=== PATIENT | male | born 1980 | race Caucasian/White ===

== ENCOUNTER → 2017-09-05 | Outpatient (CLI) | payer OTHER ==
--- NOTE | 2017-09-05 10:31 | DIAGNOSTIC IMAGING REPORT ---
S.I. JOINTS 3 OR MORE VIEWS CLINICAL HISTORY: CHRONIC LEFT SI JOINT PAIN COMPARISON STUDY: None. FINDINGS: No fractures identified within the sacrum. The bilateral sacroiliac joints are within normal limits. No significant degenerative changes or erosions identified. Surgical clip within the right lower quadrant. IMPRESSION: No significant abnormality within the bilateral sacroiliac joints. Electronically signed by: Alfonso Michaels M.D. 09/05/2017 10:30 AM Dictated Date/Time: 09/05/2017 10:29 AM
== END | disposition home or self-care (01) ==
LOC: C.RDSM 10:33
PROVIDERS: ATTEND Family Medicine
DX: M53.3 Sacrococcygeal disorders, not elsewhere classified (principal)

== ENCOUNTER 2024-04-08 15:05 | Observation (INO) ==
[2024-04-08 16:02] LABS: Basophils # (auto) 0.03 K/uL (0.00-0.20); Basophils % (auto) 0.3 %; Eosinophils # (auto) 0.01 K/uL (0.00-0.50); Eosinophils % (auto) 0.1 %; Hematocrit (blood only) 48.4 % (42.0-52.0); Hemoglobin 16.9 g/dl (14.0-18.0); Immature Granulocytes # (auto) 0.03 K/uL (0.01-0.20); Immature Granulocytes % (auto) 0.3 %; Lymphocytes % (auto) 18.1 %; Mean Corpuscular Hemoglobin 28.4 pg (25.0-34.0); Mean Corpuscular Hgb Conc 34.9 g/dL (32.0-36.0); Mean Corpuscular Volume 81.2 fL (80.0-100.0); Mean Platelet Volume 11.7 fL (9.4-12.4); Monocytes # (auto) 0.53 K/uL (0.11-0.59); Monocytes % (auto) 5.6 %; Neutrophils # (auto) 7.09 K/uL (1.40-6.50); Neutrophils % (auto) 75.6 %; Platelet Count 183 K/uL (130-400); RDW Coefficient of Variation 12.7 % (11.5-14.5); RDW Standard Deviation 37.2 fL (36.4-46.3); Red Blood Count 5.96 M/uL (4.70-6.10); White Blood Count 9.39 K/ul (4.8-10.8)
[2024-04-08 16:12] LABS: Alanine Aminotransferase 31 U/L (7-52); Albumin Globulin Ratio 1.6 (0.9-2); Alkaline Phosphatase 109 U/L (34-104); Anion Gap 12 (3-11); Aspartate Aminotransferase 23 U/L (13-39); Bilirubin,Total 1.1 mg/dl (0.2-1.0); Blood Urea Nitrogen 14 mg/dl (6-23); Calcium 9.9 mg/dl (8.6-10.3); Carbon Dioxide 26 mmol/L (21-32); Chloride 100 mmol/L (98-107); Est GFR (African American) 106.4 ml/min; Est GFR (Non-African American) 91.8 ml/min; Globulin 3.1 gm/dl (2.5-4.0); Glucose 112 mg/dl (70-99(Fasting)); Potassium 3.7 mmol/L (3.5-5.1); Sodium 138 mmol/L (136-145); Total Protein 8.1 gm/dl (6.0-8.3)
[2024-04-08 16:22] LABS: Partial Thromboplastin Time 28 Seconds (21-31); Prothrombin Time 10.9 Seconds (9.0-12.0)
--- NOTE | 2024-04-08 16:28 | XRay Report ---
XR chest 1V not portable CLINICAL HISTORY: Chest pain, nonspecific TECHNIQUE: Single frontal radiograph of the chest was obtained. Comparison: Comparison is made to chest radiograph 04/05/2024 FINDINGS: No lines and tubes are seen. The cardiomediastinal silhouette is normal. The lungs are clear. No evid ence of pleural effusion or pneumothorax. IMPRESSION: No acute chest disease. ACT 112: Negative or not required by law. Electronically signed by: Arthur Pedraza M.D. 04/08/2024 4:27 PM
--- NOTE | 2024-04-08 16:46 | Electrocardiogram Report ---
Test Reason : Blood Pressure : / mmHG Vent. Rate : 099 BPM Atrial Rate : 099 BPM P-R Int : 136 ms QRS Dur : 106 ms QT Int : 356 ms P-R-T Axes : 026 -74 043 degrees QTc Int : 456 ms Normal sinus rhythm Left axis deviation Minimal voltage criteria for LVH, may be normal variant Abnormal ECG When compared with ECG of 05-APR-2024 12:01, No significant change was found Confirmed by Hai Johnson ([id number]) on 04/08/2024 4:45:24 PM Referred By: Confirmed By:Hai Johnson
--- NOTE | 2024-04-08 18:15 | History & Physical Report ---
Date of Service April 08, 2024 Assessment & Plan (1) Chest pain: Plan: Substernal chest pain that developed on 04/05 while raking; negative workup in the ED on 04/05 Recurrence of chest pain on 04/08 ECG revealed NSR with no acute changes from 04/05 Troponin WNL at 8.0 on arrival, repeat pending Unclear etiology, but given hours of CP without positive troponin, lower suspicion for cardiac etiology Treadmill stress echocardiogram ordered for the morning of 04/09 Lyme ordered, pending ECG as needed for chest pain Continuous telemetry monitoring A.m. CBC, BMP (2) Hypertension: Plan: If stress echocardiogram and Lyme are negative, most likely etiology may be hypertension Patient was started on valsartanHCTZ on Friday 04/06 by PCP Per home BP readings, he has been around 160/105 Continue olmesartanHCTZ for now and continue to monitor kidney function Will add on metoprolol tartrate 12.5 mg p.o. BID (3) Hypercholesterolemia: Plan: Familial hypercholesteremia Continue atorvastatin Plan Disposition: Obs - Admit to [facility] telemetry Full code Heart healthy diet VTE PPx: Encourage ambulation, and can add on for extended stay History of Present Illness Chief Complaint: Chest Pain Primary Care Provider: Obduliocharity Kael Garcia is a 43-year-old male with PMH of HTN and hypercholesterolemia. He presented for chest pain on 04/08. He initially presented to the ED on Thursday 04/05 after experiencing transverse lower chest pain while raking outside in the yard. He characterizes the pain as a sharp pain that lasted several hours; 4/10. No radiation to the back, but patient was unsure if it later radiated to his shoulders. Patient did experience some relief when laying flat on his back. Associated symptoms included nausea and shortness of breath. He did not take any medications prior to going to the ED that day. Patient saw his PCP on Friday 04/06 and was started on a new blood pressure medication (olmesartanHCTZ). However, when the chest pain occurred on Sunday 04/08, he returned to the ED. Chest pain is nonreproducible on exam. He denies pleuritic chest pain. No PMH of [place], DVT/PE, stroke, diabetes, or PVD. No PMH of GERD, and patient reports that medications given for GERD on 04/05 did not alleviate his symptoms. He does have a history of familial hypercholesterolemia, and was recently diagnosed with HTN. Family history includes [place] (both grandparents) as well as high cholesterol; no sudden cardiac deaths in family members <55yo. Patient denies smoking, tobacco use, or recent alcohol use. Patient's is at the bedside, and reports that he is normally active without complaint. He has been taking his blood pressure at home over the past couple days and it has been running high around 160/105. Patient is hypertensive at 164/126 and mildly tachycardic at 99 bpm at time of admission. ED course: ROS: Patient endorses chest pain, episodes of sweating (which patient believes is unrelated to the chest pain), difficulty taking deep breaths (which patient is attributes to the chest pain), nausea, and diarrhea (which began after patient started olmesartan/HCTZ). Patient denies fever, chills, body aches, rashes, tick bites, dizziness, lightheadedness, headache, cough, pleuritic CP, abdominal pain, N/V, change in urinary habits, or numbness and tingling in arms or legs. Allergies Allergy/AdvReac Type Severity Reaction Status Date / Time No Known Allergies Allergy Verified 04/08/24 18:17 Home Medications Medication Instructions Recorded Confirmed Type atorvastatin 20 mg tablet 20 mg PO QAM 04/05/24 04/08/24 History azelastine 137 mcg (0.1 %) nasal 1 spray intranasal QAM PRN 04/05/24 04/08/24 History spray aerosol Congestion coenzyme Q10 100 mg capsule 100 mg PO DAILY 04/05/24 04/08/24 History (CoQ-10) fluticasone propionate 50 2 spray intranasal QPM PRN 04/05/24 04/08/24 History mcg/actuation nasal Congestion spray,suspension omega 5-yfv-ast-fish oil 1,000 mg 1 cap PO DAILY 04/05/24 04/08/24 History (120 mg-180 mg) capsule (Fish Oil) olmesartan 20 1 tab PO DAILY 04/08/24 04/08/24 History mg-hydrochlorothiazide 12.5 mg tablet Past Med/Surg History Problem List (Updated 04/08/24 @ 19:12 by Alfonso Ramos PA-C) Hypertension Chest pain (Acute) Hypercholesterolemia (Acute) Medical History (Updated 04/08/24 @ 19:12 by Alfonso Ramos PA-C) Hypertriglyceridemia Social History Smoking Status: Never smoker Preferred Language: Tongan Feels Safe at Home: Yes Review of Systems Review of Systems: See HPI above Physical Exam Physical Exam: General: no acute distress; anxious; non-toxic appearing; well-nourished; cooperative; SpO2 94% on RA HEENT: normocephalic, atraumatic; no scleral icterus; PERRLA; moist mucus membrane; vision and hearing grossly intact Neck: supple; no lymphadenopathy; trachea midline Skin: warm, dry without signs of tenting; no cyanosis; no rashes, bruising, lesions, or erythema noted CV: chest wall NTP; chest pain is not reproducible on exam; RRR; S1/S2 normal; no murmurs/rubs/gallops; pulses intact and symmetric at radial, DP, and PT Lungs: no acute respiratory distress; symmetrical chest wall expansion; clear breath sounds across all lung chahal w/o adventitious sounds; no wheezing ABD: Soft, NTP; BS present; no rebound/guarding; no distention MSK: no tics or fasciculations; no edema noted in the LEs b/l, nonerythematous Neuro: A&Ox3; normal mood and affect; fluent speech; no focal deficits; sensation grossly intact in the LEs b/l Results & Data Results & Data Vital Signs (Past 12 Hours) Vital Signs Temp Pulse Resp BP Pulse Ox O2 Del Method 04/08/24 15:21 36.9 C 99 H 19 164/126 H 94 Room Air Laboratory Results Abnormal lab results 04/08/24 Range/Units 15:27 Neut # (Auto) 7.09 H (1.40-6.50) K/uL Anion Gap 12 H (3-11) Glucose 112 H (70-99(Fasting)) mg/dl Total Bilirubin 1.1 H (0.2-1.0) mg/dl Alkaline Phosphatase 109 H (34-104) U/L Diagnostic Findings Chest X-Ray 04/08/24 15:23 XR chest 1V not portable CLINICAL HISTORY: Chest pain, nonspecific TECHNIQUE: Single frontal radiograph of the chest was obtained. Comparison: Comparison is made to chest radiograph 04/05/2024 FINDINGS: No lines and tubes are seen. The cardiomediastinal silhouette is normal. The lungs are clear. No evidence of pleural effusion or pneumothorax. IMPRESSION: No acute chest disease. ACT 112: Negative or not required by law. Electronically signed by: Arthur Pedraza M.D. 04/08/2024 4:27 PM ECG Additional Comments: ECG revealed NSR at 99 bpm; QTc 456 No significant change from 04/05/2024 Code Status & VTE Plan Code Status Full code Supervising Physician Co-Signing Physician Notes Patient seen and examined, chart reviewed, case discussed with Alfonso Ramos PA-C and I agree with the assessment and plan as above except as otherwise noted Labs and images reviewed 43-year-old male who was seen in the ER instantly discharged 3 days ago for substernal chest pain with radiation to the left arm which occurred during yard work. Patient had a constant ache of more than 2 hours by time of hospital assessment at that time, as his troponin was normal and his heart score was low risk for ACS patient was recommended to follow-up with PCP for further intervention and BP control as he was noted to be hypertensive. Patient Ceci presents to the ER 04/08 and is not comfortable with return home as he has had recurrent pain and hypertension. He has not had new or changing symptoms. He is not hypoxic. His BP is 164/126, Had not received any treatment prior to consultation. Patient was started on metoprolol 12.5 mg tartrate twice daily. BP improving on recheck 160/90s. Troponin was normal, no acute ischemic changes on EKG. patient with a high level of concern especially given recurrent pain and does not feel comfortable discharge and pursuing outpatient stress test. Will order stress test for the a.m., and in the meantime treat his blood pressure with adjunct metoprolol. Stress echo ordered for a.m. Lyme is pending. P alyse is initially seen in waiting room due to ER overflow, and subsequently moved to ER room. On exam lungs are clear, heart rate is regular, no murmurs appreciated. Agree with assessment and management above. No evidence of CHF. No rashes. No positional or reproducible chest pain on exam. PG Care Time/CCT Total # of Minutes Spent Total Time Spent with Patient: Total time spent is greater than 50% in coordination of care (as documented) at patient's floor/unit and/or counseling patient: [place] [address] INT INP/OBS CARE MIN Patient Type New History Comprehensive Exam Comprehensive Medical Decision Making Moderate Complexity Diagnoses Chest pain R07.9 Hypertension I10 Hypercholesterolemia E78.00
[2024-04-08] MEDS ORDERED: FLUTICASONE PROPIONATE NA SPR 16 GM BTL PRN (21:48)
[2024-04-08] MEDS ORDERED: ACETAMINOPHEN 325 MG TAB PO PRN (21:48)
[2024-04-08] MEDS: METOPROLOL TARTRATE 25 MG TAB PO SCH (22:07)
--- NOTE | 2024-04-08 22:46 | Emergency Department Note ---
History of Present Illness General Chief Complaint: Chest Pain Stated Complaint: CHEST PAINS, SOB Time Seen by Provider: 04/08/24 17:49 History of Present Illness Provider Complaint: chest pain Onset (ago): day(s) 3 Duration: intermittent Onset: during rest Pain Location: substernal Severity: moderate Maximum Pain Intensity: 4 Current Pain Intensity: 4 Quality: + dull Relieved By: + nothing Exacerbated By: + nothing Context: no recent illness, no recent surgery, no recent immobilization, no recent travel, no trauma/injury, no new medications or no history of DVT/PE Associated symptoms: + dyspnea; no nausea, no vomiting, no diaphoresis, no syncope, no palpitations, no fever, no cough or no leg swelling Home Medications Medication Instructions Recorded Confirmed Type atorvastatin 20 mg tablet 20 mg PO QAM 04/05/24 04/08/24 History azelastine 137 mcg (0.1 %) nasal 1 spray intranasal QAM PRN 04/05/24 04/08/24 History spray aerosol Congestion coenzyme Q10 100 mg capsule 100 mg PO DAILY 04/05/24 04/08/24 History (CoQ-10) fluticasone propionate 50 2 spray intranasal QPM PRN 04/05/24 04/08/24 History mcg/actuation nasal Congestion spray,suspension omega 2-qdd-oar-fish oil 1,000 mg 1 cap PO DAILY 04/05/24 04/08/24 History (120 mg-180 mg) capsule (Fish Oil) olmesartan 20 1 tab PO DAILY 04/08/24 04/08/24 History mg-hydrochlorothiazide 12.5 mg tablet Allergies Allergy/AdvReac Type Severity Reaction Status Date / Time No Known Allergies Allergy Verified 04/08/24 18:17 Past Med/Surg History Problem List (Updated 04/08/24 @ 22:46 by Ravi Barrera MD) Hypertension Chest pain (Acute) Hypercholesterolemia (Acute) Medical History Hypertriglyceridemia Social History Smoking Status: Never smoker Preferred Language: Latvian Feels Safe at Home: Yes Physical Exam Vital Signs Vital Signs - 24 hr 04/08/24 15:21 04/08/24 18:36 Temperature 36.9 C Temperature Source Temporal Artery Scan Pulse Rate 99 H Pulse Rate [Finger] 87 Respiratory Rate 19 Respiratory Effort / Characteristics Non-Labored Spontaneous Respiratory Depth Normal Blood Pressure 164/126 H Blood Pressure [Left Arm] 167/97 H Blood Pressure Mean 138 Blood Pressure Mean [Left Arm] 120 Pulse Oximetry 94 Oxygen Delivery Method Room Air Sepsis Recent Fever Within 48 Hours No Sepsis New/Unexplained Change in Mental Status N/A Sepsis Action Taken by Nursing No Action Required Physical Exam GENERAL: oriented to person, place, and time. appears well-developed and well- nourished. HENT: Exam performed. - Head: Normocephalic and atraumatic. EYES: Conjunctivae and EOM are normal. Right eye exhibits no discharge. Left eye exhibits no discharge. No scleral icterus. NECK: Normal range of motion. Neck supple. No JVD present. CV: Normal rate, regular rhythm, normal heart sounds and intact distal pulses. There is no peripheral edema. Palpable radial pulses bue. PULM/CHEST: Effort normal and breath sounds normal. No respiratory distress. No stridor. no wheezes. no rales. NEURO: Motor and sensation grossly intact. SKIN: Skin is warm and dry. He is not diaphoretic. PSYCH: normal mood and affect. Behavior is normal. Judgment and thought content normal. Course Course 1748: The patient was evaluated in room Triage 3. A complete history and physical exam was performed Patient was seen during a time of extreme volume and extreme acuity. Nursing triage protocols were initiated labs and imaging was conducted by protocol in the triage area. Vital signs stable. Physical exam within normal limits. Labs and imaging within normal limits. External medical records reviewed. Patient was seen in the emergency department 2 days ago for similar episode. Patient had negative troponins negative D-dimer negative CTA of the chest. Patient was evaluated by Dr. Elliott in the emergency department. She tried to have the patient admitted to the hospitalist team and the patient was evaluated by Dr[facility] and discharged home. Given the patient's continued symptoms and his return visit to the emergency department patient be admitted to the [facility] hospitalist team for cardiac workup and cardiology evaluation. Dr. Reyes will be notified. Administered Medications Metoprolol Tartrate (Metoprolol Tartrate 25 Mg Tab) 12.5 mg PO BID FRANCIE Stop: 04/08/24 23:59 Last Admin: 04/08/24 22:07 Dose: 12.5 mg Documented By: [facility] [place] Medical Decision Making Laboratory Data Attestation: I reviewed the patient's lab results. 04/08/24 15:27 04/08/24 15:27 Labs: Lab Results 04/08/24 Range/Units 15:27 WBC 9.39 (4.8-10.8) K/ul RBC 5.96 (4.70-6.10) M/uL Hgb 16.9 (14.0-18.0) g/dl Hct 48.4 (42.0-52.0) % MCV 81.2 (80.0-100.0) fL MCH 28.4 (25.0-34.0) pg MCHC 34.9 (32.0-36.0) g/dL RDW Std Deviation 37.2 (36.4-46.3) fL RDW Coeff of Susan 12.7 (11.5-14.5) % Plt Count 183 (130-400) K/uL MPV 11.7 (9.4-12.4) fL Immature Gran % (Auto) 0.3 % Neut % (Auto) 75.6 % Lymph % (Auto) 18.1 % [place] % (Auto) 5.6 % Eos % (Auto) 0.1 % Baso % (Auto) 0.3 % Neut # (Auto) 7.09 H (1.40-6.50) K/uL Lymph # (Auto) 1.70 (1.20-3.40) K/uL [place] # (Auto) 0.53 (0.11-0.59) K/uL Eos # (Auto) 0.01 (0.00-0.50) K/uL Baso # (Auto) 0.03 (0.00-0.20) K/uL Immature Gran # (Auto) 0.03 (0.01-0.20) K/uL PT 10.9 (9.0-12.0) Seconds INR 1.0 (0.9-1.1) APTT 28 (21-31) Seconds PTT Ratio 1.0 Sodium 138 (136-145) mmol/L Potassium 3.7 (3.5-5.1) mmol/L Chloride 100 (98-107) mmol/L Carbon Dioxide 26 (21-32) mmol/L Anion Gap 12 H (3-11) BUN 14 (6-23) mg/dl Creatinine 1.00 (0.6-1.4) mg/dl Est Cr Clr Drug Dosing Not Reportable Est GFR ( Amer) 106.4 ml/min Est GFR (Non-Af Amer) 91.8 ml/min BUN/Creatinine Ratio 14.0 (10-20) Glucose 112 H (70-99(Fasting)) mg/dl Calcium 9.9 (8.6-10.3) mg/dl Total Bilirubin 1.1 H (0.2-1.0) mg/dl AST 23 (13-39) U/L ALT 31 (7-52) U/L Alkaline Phosphatase 109 H (34-104) U/L Troponin I High Sens 8.0 (0-20) pg/ml Total Protein 8.1 (6.0-8.3) gm/dl Albumin 5.0 (3.4-5.0) gm/dl Globulin 3.1 (2.5-4.0) gm/dl Albumin/Globulin Ratio 1.6 (0.9-2) Lyme Disease Screen Negative (Negative) Imaging Data Chest x-ray: Attestation: I personally reviewed and interpreted this imaging study as follows: My impression: Chest x-ray negative. Airway clear. No pneumothorax. No consolidation. No cardiomegaly or cephalization.. No free air under the diaphragm. No fractures of the skeletal structures. Radiologist's impression: Chest X-Ray 04/08/24 15:23 XR chest 1V not portable CLINICAL HISTORY: Chest pain, nonspecific TECHNIQUE: Single frontal radiograph of the chest was obtained. Comparison: Comparison is made to chest radiograph 04/05/2024 FINDINGS: No lines and tubes are seen. The cardiomediastinal silhouette is normal. The lungs are clear. No evidence of pleural effusion or pneumothorax. IMPRESSION: No acute chest disease. ACT 112: Negative or not required by law. Electronically signed by: Arthur Pedraza M.D. 04/08/2024 4:27 PM ECG Data Attestation: I personally reviewed and interpreted this ECG as follows: Indication: chest pain Rate (beats per minute): 99 Rhythm: normal sinus Findings: no ST depression, no ST elevation or no prolonged QT MDM Narrative The patient was evaluated in room Triage 3. A complete history and physical exam was performed Patient was seen during a time of extreme volume and extreme acuity. Nursing triage protocols were initiated labs and imaging was conducted by protocol in the triage area. Vital signs stable. Physical exam within normal limits. Labs and imaging within normal limits. External medical records reviewed. Patient was seen in the emergency department 2 days ago for similar episode. Patient had negative troponins negative D-dimer negative CTA of the chest. Patient was evaluated by Dr. Elliott in the emergency department. She tried to have the patient admitted to the hospitalist team and the patient was [email or web address] and discharged home. Given the patient's continued symptoms and his return visit to the emergency department patient be admitted to the [facility] hospitalist team for cardiac workup and cardiology evaluation. Dr. Reyes will be notified. Impression & Plan Chest pain Discharge Plan Visit Data Chief Complaint: Chest Pain Stated Complaint: CHEST PAINS, SOB ED Provider: Ravi Barrera Discharge Problem: Chest pain Patient Disposition: Admitted As Inpatient Discharge Instructions Interventions: ED Discharge Assessment Last Done: 04/08/24 21:47 Discharge Problem: Chest pain Qualifiers: Chest pain type: unspecified Qualified Code(s): R07.9 - Chest pain, unspecified
[2024-04-09 07:14] LABS: Basophils # (auto) 0.02 K/uL (0.00-0.20); Basophils % (auto) 0.3 %; Eosinophils # (auto) 0.08 K/uL (0.00-0.50); Hematocrit (blood only) 44.3 % (42.0-52.0); Hemoglobin 15.5 g/dl (14.0-18.0); Immature Granulocytes # (auto) 0.03 K/uL (0.01-0.20); Immature Granulocytes % (auto) 0.4 %; Lymphocytes # (auto) 2.68 K/uL (1.20-3.40); Lymphocytes % (auto) 33.6 %; Mean Corpuscular Hemoglobin 28.5 pg (25.0-34.0); Mean Corpuscular Volume 81.6 fL (80.0-100.0); Mean Platelet Volume 12.1 fL (9.4-12.4); Monocytes # (auto) 0.72 K/uL (0.11-0.59); Neutrophils # (auto) 4.45 K/uL (1.40-6.50); Neutrophils % (auto) 55.7 %; Platelet Count 149 K/uL (130-400); RDW Coefficient of Variation 12.6 % (11.5-14.5); RDW Standard Deviation 37.1 fL (36.4-46.3); Red Blood Count 5.43 M/uL (4.70-6.10); White Blood Count 7.98 K/ul (4.8-10.8)
[2024-04-09 07:32] LABS: BUN Creatinine Ratio 16.7 (10-20); Calcium 9.5 mg/dl (8.6-10.3); Creatinine Clr Calc Pharmacy 108.8 ml/min; Est GFR (African American) 96.9 ml/min; Est GFR (Non-African American) 83.6 ml/min; Potassium 3.4 mmol/L (3.5-5.1)
[2024-04-09] MEDS: ATORVASTATIN 20 MG TAB PO SCH (08:26)
[2024-04-09] MEDS: hydroCHLOROthiazide 25 MG TAB PO SCH (08:27)
[2024-04-09] MEDS: LOSARTAN POTASSIUM 50 MG TAB PO SCH (08:27)
[2024-04-09] MEDS: METOPROLOL TARTRATE 25 MG TAB PO SCH (11:36)
--- NOTE | 2024-04-09 13:56 | XCELERA ---
[id number]
--- NOTE | 2024-04-09 14:58 | Discharge Summary ---
Discharge Summary Date of Service April 09, 2024 Notes For Next Care Provider pt did have a negative exercise stress test, pt does not have significant anginal symptoms consider GI workup Admission HPI Per Admitting Provider Jose is a 43-year-old male with PMH of HTN and hypercholesterolemia. He presented for chest pain on 04/08. He initially presented to the ED on Thursday 04/05 after experiencing transverse lower chest pain while raking outside in the yard. He characterizes the pain as a sharp pain that lasted several hours; 4/10. No radiation to the back, but patient was unsure if it later radiated to his shoulders. Patient did experience some relief when laying flat on his back. Associated symptoms included nausea and shortness of breath. He did not take any medications prior to going to the ED that day. Patient saw his PCP on Friday 04/06 and was started on a new blood pressure medication (olmesartanHCTZ). However, when the chest pain occurred on Sunday 04/08, he returned to the ED. Chest pain is nonreproducible on exam. He denies pleuritic chest pain. No PMH of [place], DVT/PE, stroke, diabetes, or PVD. No PMH of GERD, and patient reports that medications given for GERD on 04/05 did not alleviate his symptoms. He does have a history of familial hypercholesterolemia, and was recently diagnosed with HTN. Family history includes [place] (both grandparents) as well as high cholesterol; no sudden cardiac deaths in family members <55yo. Patient denies smoking, tobacco use, or recent alcohol use. Patient's is at the bedside, and reports that he is normally active without complaint. He has been taking his blood pressure at home over the past couple days and it has been running high around 160/105. Patient is hypertensive at 164/126 and mildly tachycardic at 99 bpm at time of admission. ED course: ROS: Patient endorses chest pain, episodes of sweating (which patient believes is unrelated to the chest pain), difficulty taking deep breaths (which patient is attributes to the chest pain), nausea, and diarrhea (which began after patient started olmesartan/HCTZ). Patient denies fever, chills, body aches, rashes, tick bites, dizziness, lightheadedness, headache, cough, pleuritic CP, abdominal pain, N/V, change in urinary habits, or numbness and tingling in arms or legs. Principal Dx & Hospital Course #1 = Principal Diagnosis (1) Chest pain: Substernal chest pain that developed on 04/05 while raking; negative workup in the ED on 04/05 Recurrence of chest pain on 04/08 ECG revealed NSR with no acute changes from 04/05 Troponin WNL at 8.0 on arrival, repeat pending Unclear etiology, but given hours of CP without positive troponin, lower suspicion for cardiac etiology Treadmill stress echocardiogram negative for inducible ischemia 04/09 Lyme ordered, negative Chest pain from cardiac origin has been ruled out (2) Hypertension: subacute not clear if controlled valsartanHCTZ continues as per outpt provider (3) Hypercholesterolemia: Familial hypercholesteremia Continue atorvastatin Updated Medication List Medication Instructions Recorded Confirmed Type atorvastatin 20 mg tablet 20 mg PO QAM 04/05/24 04/08/24 History azelastine 137 mcg (0.1 %) nasal 1 spray intranasal QAM PRN 04/05/24 04/08/24 History spray aerosol Congestion coenzyme Q10 100 mg capsule 100 mg PO DAILY 04/05/24 04/08/24 History (CoQ-10) fluticasone propionate 50 2 spray intranasal QPM PRN 04/05/24 04/08/24 History mcg/actuation nasal Congestion spray,suspension omega 8-qgx-tem-fish oil 1,000 mg 1 cap PO DAILY 04/05/24 04/08/24 History (120 mg-180 mg) capsule (Fish Oil) olmesartan 20 1 tab PO DAILY 04/08/24 04/08/24 History mg-hydrochlorothiazide 12.5 mg tablet Hospital Stay Data Consultations 04/08/24 18:02 ED Decision to Admit Stat Pending Results Patient Have Any Pending Studies at Discharge: No Discharge Instructions Given to Patient (Per Discharging Provider) you had a normal exercise stress test which is good news! this means that your heart functions normally when asked to work hard and excludes the possibility of serious cardiac disease please follow up with your primary care doctor to further explore the reasons for your chest pain please continue to work on healthy lifestyle to help your blood pressure and cholesterol problems Total Time Total Time Spent Total Time Spent (In Minutes): It required less than 30 minutes to prepare this patient for discharge. Coding Level of Care Code 93768 IN/OBS DISCH 30 MIN/LESS Diagnoses Chest pain R07.9 Chest pain type: unspecified Hypertension I10 Hypercholesterolemia E78.00
--- OUTSIDE RECORDS SUMMARY | 2024-04-10 06:34 | External Medical Summary | Continuity of Care Document ---
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 Name Role Phone Khalida Scruggs Primary Care Physician [phone] [id number] Date(s): 04/06/24 - 04/06/24 [facility] [address] Medical [facility] [address] [address] [phone] Encounter Diagnosis Dyspnea on exertion(Discharge Diagnosis) - 04/06/24 Severe hypertension(Discharge Diagnosis) - 04/06/24 Essential (primary) hypertension(Final) - Other forms of dyspnea(Final) - Discharge Disposition: Home or Self Care Attending Physician: MD Sky, [place] Allergies, Adverse Reactions, Alerts No Known Allergies Assessment and Plan Extracted from: Title:Dyspnea on Exertion/Se kate Hypertension Author:MD Susana, Adedoyin Date:04/06/24 1.Dyspnea on exertion Acute;uncomplicated;not at goal -Dyspnea on exertion does not appear to concerning(normal O2 saturation, not diminishedexercise/functionalcapacity, no dyspnea at rest, negativeER ACSworkup). However,patient's risk factors(history of hypertriglyceridemia,weight disorder,new diagnosis ofhypertension)suggest this patient's dyspneawarrantsfurther evaluation. -Concern for stable angina(vspulmonary hypertension, -Orderedstressechocardiogram, lipid profile.Will review results. 2.Severe hypertension Acute;complicated;not at goal -Elevated blood pressure complicated by severity. No obvious inciting factor.Will treat as essentialhypertension. However,furtheretiologicdiagnostic workupis warranted, given patient's severe and suddenpresentation. -Sent prescription forolmesartan-HCTZ(20-12.5 mg)dailyto pharmacy. -OrderedTS, serum renin, serum aldosterone. Will review results. -Orderedsleep studydue to patient'selevated risk ofobstructive sleep apnea (elevated riskon STOP-BANG questionnaire). Await report. -Instructed patient tomaintaindailyBP log. Providedpaper BP logs. Also instructed patient on properBP measurement technique. -Follow-up x 2 weeks. Will reviewhomeBPlogsthen. Instructed patient to bring home BP cuff tofollow-up visitfor calibration. Immunizations Given and Recorded Vaccine Date Status Refusal Reason SARS-CoV-2 (COVID-19) mRNA BNT-162b2 vax 1 09/15/21 Recorded SARS-CoV-2 (COVID-19) mRNA BNT-162b2 vax 02/04/21 Recorded SARS-CoV-2 (COVID-19) mRNA BNT-162b2 vax 01/14/21 Recorded influenza virus vaccine, live 08/18/21 Recorded influenza virus vaccine, live 10/01/20 Recorded 1Result Comment: 2023-10-04: Historical information-source unspecified Medications atorvastatin 20 mg oral tablet Start: 09/27/23 12:00:00 PM EST, See Instructions, Disp# 90 tab, Refills: 3, TAKE 1 TABLET EVERY NIGHT AT BEDTIME, Pharmacy: [facility] Start Date: 09/27/23 Status: Ordered azelastine 137 mcg/inh (0.1%) nasal spray Start: 04/06/24 11:13:00 AM EDT Start Date: 04/06/24 Status: Ordered Flonase 50 mcg/inh nasal spray Start: 04/06/24 11:12:00 AM EDT Start Date: 04/06/24 Status: Ordered hydrochlorothiazide-olmesartan 12.5 mg-20 mg oral tablet Start: 04/06/24 12:34:00 PM EDT, 1 tab, PO, Daily, Disp# 30 tab, X 30 day, Refills: 0, Stop: 05/06/2412:34:00 PM EDT, Pharmacy: [id number] Start Date: 04/06/24 Stop Date: 05/06/24 Status: Ordered Lovaza 1000 mg oral capsule Start: 12/24/12 3:22:19 PM EST, 2 cap, PO, bid, Disp# 360 cap, Refills: 3, Pharmacy: [facility] Start Date: 12/24/12 Stop Date: 12/19/13 Status: Ordered Mental Status 04/06/24 Barriers to Learning one year None evide nt Mandatory Health Literacy Documentation Yes Health Literacy Communication Barriers N ever Primary Language Turkish Problem List Condition Confirmation Course Effective Dates Status Health Status Informant ALLERGIC RHINITIS Confirmed Active Ankle pain, left Confirmed Active Family history of melanoma 1 Confirmed Active Hypertriglyceridemia Confirmed Active Weight disorder Confirmed Active 1both parents Diagnosis Diagnosis Type Effective Dates Health Status Clinical Service Informant Dyspnea on exertion Discharge Diagnosis 04/06/24 Non-Specified Severe hypertension Discharge Diagnosis 04/06/24 Non-Specified Procedures Procedure Date Related Diagnosis Body Site Status Excision 1 08/13/19 Completed Vasectomy 2013 Completed appendectomy Completed Shave biopsy of skin Comp leted 1cyst right neck Results Laboratory List Name Date Aldosterone (ALDOSTERONE) 04/06/24 Lipid Profile (LIPOPROTEINS) 04/06/24 Thyroid Stimulating Hormone (TSH) 4 Most recent to oldest [Reference Range]: 1 Aldosterone 8.3 1 (04/06/24 2:05 PM) Non-HDL 149 mg/dL (04/06/24 2:05 PM) Chol/HDL 6 (04/06/24 2:05 PM) Chol [<200 mg/dL] 182 mg/dL (04/06/24 2:05 PM) HDL [>40 mg/dL] 33 mg/dL *LOW* (04/06/24 2:05 PM) LDL Chol, Calculated [50-130 mg/dL] NOT CALCULATED mg/dL (04/06/24 2:05 PM) TG [<150 mg/dL] 434 mg/dL *HI* (04/06/24 2:05 PM) TSH [0.30-4.20 uIU/mL] 1.88 uIU/mL (04/06/24 2:05 PM) 1Result Comment: Unit: ng/dL INTERPRETIVE INFORMATION: Aldosterone, Serum Reference intervals for age 15 and older: Upright ......... 4.0 - 31.0 ng/dL Supine .......... Less than or equal to 16.0 ng/dL Unspecified ..... Less than or equal to 31.0 ng/dL Normal serum levels of aldosterone are dependent on the sodium intake and whether the patient is upright or supine. High sodium intake will tend to suppress serum aldosterone, whereas low sodium intake will elevate serum aldosterone. The reference intervals for serum aldosterone are based on normal sodium intake. Access complete set of age- and/or gender-specific reference intervals for this test in the [facility] Test Directory ([employer]). Performed By: [facility] [address] [place] [address] Boilermaker'S Assistant: Olaf Lundberg MD, PhD CLIA Number: [id number] Vital Signs Most recent to oldest [Reference Range]: 1 2 Height 172 cm (04/06/24 11:14 AM) Patient Weight 100.4 kg (04/06/24 11:14 AM) Body Mass Index 33.94 kg/m2 (04/06/24 11:14 AM) Heart Rate 74 bpm (04/06/24 11:14 AM) Respiratory Rate 18 br/min (04/06/24 11:14 AM) Blood Pressure 190/110mmHg (04/06/24 11:28 AM) 198/110mmHg (04/06/24 11:14 AM) Cuff Pulse Pressure 88 mmHg (04/06/24 11:14 AM) Social History Social History Type Response Smoking Status Former Smoker, quit > 1 yr Sex Male FCM Outpt Note * MD Tse Joseph P: MODIFY MD Tse Joseph P: MODIFY Event Display: FCM Outpt Note Authored Date: Chief Complaint ED f/u- SOB and chest pain. Pain gone, but still a bit of SOB. BP was high in ED. History of Present Illness [id number] year-oldmanwho presents todayfor ER follow-up after presenting fornon radiatingleftsided chestpain. -Presented to the ERyesterday workup was negative for STEMI/NSTEMI.Rest of workup mostlydiagnostic. He was discharged homewith instructions for close PCP follow-up. -His chest pain has since resolved. However, today, he reportsfeeling"weirdly short of breath." -When asked to elaborate,he reportsfeelingshort of breath when performing tasks he could previously perform withoutdifficulty(mowing the lawn,walkingflight of stairs). -He denies chest pain,dyspnea at rest,headache,epigastric pain,dizziness, nausea,vision changes, or family history ofMI or heart disease. -Of note, hisblood pressureat this visit is significantly elevatedfirst measurement 198/110, second evrkzqcfacq647/110. Areview of his ER visit showsthat his blood pressure was similarly elevated there(170s to 180s/90s to 100s). -He has never been treated foror diagnosedwith high blood pressure. -His , whoaccompanied him to this visit,will alsolike to have him evaluated for sleep apnea, as she has noticed that hisbreathing during sleep has been disordered and has even seenbrieflystop breathing. ASTOP- BANGscreeningquestionnaires isconducted below. STOP BANG -Do you snore loudly (louder than talking or loud enough to be heard through closed doors)?Yes (+1) -Do you often feel tired, fatigued, or sleepy during the daytime?Yes (+1) -Has anyone observed you stop breathing during sleep?Yes (+1) -Do you have (or are you being treated for) high blood pressure?Yes (+1) -BMI:< or =35 kg/m -Age:< or = 50 years -Neck circumference:>40 cm (+1)(45 cm) -Gender:Male (+1) -Score:5+: high risk of MEL. Review of Systems See HPI. Physical Exam Vitals & Measurements HR:74(Monitored) RR:18 BP:190/110 SpO2:95% HT:172cm WT:100.400kg(Dosing) WT:100.4kg BMI:33.94 PHQ2 Data(Data Documented on:04/06/2024 11:13) Emotional health assessment NEGATIVE General:Alert and orientedindividual in no acute distress. Cardiovascular:Regular rate and rhythm. No murmurs or gallops. Respiratory:Lungs clear to auscultation bilaterally. Respirations are non- labored. Breath sounds are equal. Psych:Mood-affect congruence. Reports no SI/HI. Speech is of normal pace and content. Assessment/Plan 1.Dyspnea on exertion Acute;uncomplicated;not at goal -Dyspnea on exertion does not appear to concerning(normal O2 saturation, not diminishedexercise/functionalcapacity, no dyspnea at rest, negativeER ACSworkup). However,patient's risk factors(history of hypertriglyceridemia,weight disorder,new diagnosis ofhypertension)suggest this patient's dyspneawarrantsfurther evaluation. -Concern for stable angina(vspulmonary hypertension, -Orderedstressechocardiogram, lipid profile.Will review results. 2.Severe hypertension Acute;complicated;not at goal -Elevated blood pressure complicated by severity. No obvious inciting factor.Will treat as essentialhypertension. However,furtheretiologicdiagnostic workupis warranted, given patient's severe and suddenpresentation. -Sent prescription forolmesartan-HCTZ(20-12.5 mg)dailyto pharmacy. -OrderedTSH, serum renin, serum aldosterone. Will review results. -Orderedsleep studydue to patient'selevated risk ofobstructive sleep apnea (elevated riskon STOP-BANG questionnaire). Await report. -Instructed patient tomaintaindailyBP log. Providedpaper BP logs. Also instructed patient on properBP measurement technique. -Follow-up x 2 weeks. Will reviewhomeBPlogsthen. Instructed patient to bring home BP cuff tofollow-up visitfor calibration. Attestation I saw patient and was present for the ji portions of the history and physical. I agree with theresident's note and plan as documented in the resident's note. Patient has two new problems - oneacute and one chronic, neither is at goal and may have MEL. Saadia Tse Problem List/Past Medical History Ongoing ALLERGIC RHINITIS Ankle pain, left Family history of melanoma Hypertriglyceridemia Weight disorder Resolved Gastrocnemius strain Leg pain, left Pain of left calf ROUTINE GENERAL MEDICAL EXAMINATION AT A HEALTH CARE FACILITY Procedure/Surgical History Excision| Service Date: 08/13/2019Vasectomy| Service Date: 2013[facility] of skinappendectomy Medications atorvastatin(atorvastatin 20 mg oral tablet), See Instructions, 3 refills azelastine nasal(azelastine 137 mcg/inh (0.1%) nasal spray) fluticasone nasal(Flonase 50 mcg/inh nasal spray) hydrochlorothiazide-olmesartan(hydrochlorothiazide-olmesartan 12.5 mg-20 mg oral tablet), 1 tab, PO, Daily omega-3 polyunsaturated fatty acids(Lovaza 1000 mg oral capsule), 2000 mg= 2 cap, PO, bid, 3 refills Allergies NKA Social History Smoking Status Former Smoker, quit > 1 yr Alcohol - Low Risk Tobacco - Denies Tobacco Use Family History Hyperlipidemia..: Mother. Health Status Family Member(s) Immunizations Vaccine Date Status SARS-CoV-2 (COVID-19) mRNA BNT-162b2 vax 09/15/2021 Recorded Comments : 2023-10-04: Historical information-source unspecified influenza virus vaccine, live 08/18/2021 Recorded SARS-CoV-2 (COVID-19) mRNA BNT-162b2 vax 02/04/2021 Recorded SARS-CoV-2 (COVID-19) mRNA BNT-162b2 vax 01/14/2021 Recorded influenza virus vaccine, live 10/01/2020 Recorded Recommendations Health Maintenance Pending(in the next year) OverDue Adult Influenza Vaccine due05/17/23and every 1year Due Adult COVID-19 Vaccination due04/06/24Unknown Frequency Adult Social Determinants of Health Screening due04/06/24Unknown Frequency Adult Tdap/Td Vaccine due04/06/24Unknown Frequency Satisfied(in the past 1 year) Satisfied Body Mass Index on04/06/24.Satisfied by RD Boyd Vanessa T Lipid Screening on04/06/24.Satisfied by [email or web address] Electronic Signature on File Electronically Reviewed/Signed by: Catrachito Meza MD Author Signature Dt/Tm:04/06/2024 11:13 PM Resident Department of Family Medicine Electronically Reviewed/Signed by: Brian Tse MD Cosigner Signature Dt/Tm: 04/07/2024 10:01AM Department of Family Medicine AO Patient Care team information Care Team Personnel Name: MD Henry Jonathan D Position: Physician - Family Med Member Role: Lifetime Relationship Address: Address: [address] [place] [address] [place] Name: MD Scruggs Dongsheng Position: Physician - Family Med Member Role: Primary Care Provider Address: Address: [address] [place] [address] [place] Name: DO Carmen Sameer Position: Resident Member Role: Lifetime Relationship Address: Address: [address] [place] [address] [place] Care Team Related Persons Name: ROBYN NATH Address: home [address] [phone] Name: ROBYN FLORES Address: [place] Address: home [address] [phone]
== END 2024-04-09 17:34 | disposition home or self-care (01) ==
LOC: EDINP 15:05 → ED 15:05 → SUATTDRO 18:57 → 2N 21:47